=== PATIENT | male | born 1990 | race Caucasian/White ===

== ENCOUNTER 2022-09-01 18:39 | Emergency (ER) | payer MEDICAID, SELFPAY ==
[2022-09-01 18:57] VITALS: BP 134/90; PULSE 73; RESP 18; TEMP 36.8; O2SAT 97; BMI 32.4
--- NOTE | 2022-09-01 18:57 | ED.RECABL ---
HPI - Recheck/Abnormal Lab/Rx General Chief Complaint: Recheck/Abnormal Lab/Rx Stated Complaint: Abnormal labs Time Seen by Provider: 09/01/22 20:24 Source: patient Mode of arrival: ambulatory Limitations: no limitations History of Present Illness HPI narrative: 32-year-old male presents to the ER for evaluation of possible abnormal blood work. He states his PCP told him to come in to the ER for evaluation because they thought he might have fatty liver disease. He was sent in for repeat labs. He is not sure with the lab values were. He denies any right upper quadrant pain, nausea, vomiting or diarrhea. He states he has intermittently been ?getting ?abdominal tightness? that lasts anywhere from 30 minutes to an hour for the last several months. It is chronic and nothing new. He denies alcohol intake. complaint: abnormal lab Returns today for: called because of abnormal lab/test Symptoms since prior visit: no new symptoms Associated symptoms: none Related Data Allergies Allergy/AdvReac Type Severity Reaction Status Date / Time No Known Allergies Allergy Unverified 05/09/20 16:01 [No Known Allergies*] Review of Systems Review of Systems: Yes all other systems are reviewed and are negative [facility] Social History Social History Advance Directives: No Advance Directives Information Provided: No Physical Exam Vital Signs: Vital Signs: Last Vital Signs Temp 98.2 F 09/01/22 18:57 Pulse 73 09/01/22 18:57 Resp 18 09/01/22 18:57 BP 134/90 H 09/01/22 18:57 Pulse Ox 97 09/01/22 18:57 O2 Del Method 09/01/22 18:57 BMI result Body Mass Index 32.4 Appearance: Alert. Oriented X3. Eating potato chips HEENT: normal inspection CVS: Normal heart rate and rhythm. Pulses normal. Respiratory: No respiratory distress. Abd: soft, nontender, nondistended. normal BS. No HSM palpable Skin: Skin warm and dry. Normal skin color. Normal skin turgor. No rashes. Extremities: normal inspection, no LE edema Neuro: Oriented X 3. Grossly normal, nonfocal. Course Course Course Narrative: 32 yo male with history of opioid use disorder on Suboxone presents to the ER for evaluation of abnormal lab work. He says his care provider told him to come to the ER for evaluation of his liver, that he may have fatty liver. He does not know what labs were done or what was abnormal. He reports random tight diffuse abdominal pains that started a couple months ago. Will get labs and coags. PCP is Kitty Garcia from [facility]. Reevaluation(s) Reevaluation #1: Labs show AST 55, ALT 1 weight. Normal alk-phos. Normal coags. Overall lab work is unremarkable, no indication for emergent imaging of the liver today. Results were discussed with patient. Encouraged follow up with his PCP. Stable for discharge home Medical Decision Making Medical Decision Making [facility] Narrative: 32-year-old male presenting for evaluation of abnormal blood work as an outpatient. He does not know what the lab work was. He has no right upper quadrant pain or tenderness on examination. He is not jaundiced. Will get basic lab workup including coags worse with the function of the liver. Differential Diagnosis Differential Diagnoses: The differential diagnosis associated with the presentation includes Acute cholecystitis, acute decompensated liver cirrhosis, transaminitis, fatty liver disease, pancreatitis, other metabolic derangement Lab Data [facility] Lab Attestation statement: I reviewed the patient's lab results. Labs reviewed, normal CBC, normal chemistry, very mild transaminitis, not elevated to 3 times the upper limit of normal. No elevation of alkaline phosphatase to suggest biliary obstruction. 09/01/22 19:07 09/01/22 19:07 Labs: Lab Results 09/01/22 09/01/22 09/01/22 Range/Units 19:07 19:07 19:07 WBC 8.0 (4.8-10.8) X10*3/uL RBC 5.16 (4.60-5.80) X10*6/uL Hgb 15.3 (14.0-18.0) g/dl Hct 43.7 (42.0-52.0) % MCV 84.7 (80.0-98.0) fL MCH 29.7 (27.0-33.0) pg MCHC 35.0 (31.0-36.0) g/dl RDW 11.8 (11.0-16.0) % Plt Count 240 (160-400) X10*3/uL MPV 10.8 (9.4-12.4) fL Immature Gran % (Auto) 0.3 (0.0-0.4) % Neut % (Auto) 65.8 (45-73) % Lymph % (Auto) 17.5 L (20-40) % [place] % (Auto) 8.8 (2-11) % Eos % (Auto) 6.5 H (0-4) % Baso % (Auto) 1.1 (0-2) % Lymph # (Auto) 1.4 (1.2-4.9) X10*3/uL [place] # (Auto) 0.7 (0.1-1.2) X10*3/uL Eos # (Auto) 0.5 H (0.0-0.4) X10*3/uL Baso # (Auto) 0.1 (0.0-0.2) X10*3/uL Abs Immat Gran (auto) 0.02 (0.00-0.03) X10*3/uL Absolute Neuts (auto) 5.3 (2.0-8.3) x10*3/uL Absolute Nucleated RBC 0.000 (0.0-0.012) X10*3/uL Nucleated RBC % (auto) 0.0 (0.0-0.2) /100WBC PT 11.5 (10.0-13.1) SEC INR 1.0 (0.9-1.1) APTT 28.6 (26.0-36.4) SEC Sodium 142 (135-145) mmol/L Potassium 4.4 (3.3-5.1) mmol/L Chloride 105 (96-108) mmol/L Carbon Dioxide 26 (22-29) mmol/L Anion Gap 15 (12-20) BUN 15 (9-16) mg/dL Creatinine 1.12 (0.5-1.4) mg/dL Estim Creat Clear Calc 93.4 Estimated GFR > 60 Random Glucose 85 (60-115) mg/dL Calcium 9.9 (8.4-10.2) mg/dL Magnesium 2.1 (1.6-2.6) mg/dL Total Bilirubin 0.6 (0.0-1.0) mg/dL Direct Bilirubin 0.2 (0.0-0.5) mg/dL AST 55 H (5-37) U/L ALT 108 H (0-40) U/L Alkaline Phosphatase 65 (39-117) U/L Total Protein 7.4 (6.5-8.0) g/dL Albumin 4.7 (3.5-5.0) g/dL Critical Care Time Critical Care Time Critical Care Time: No Discharge Plan Discharge Clinical Impression: Transaminitis Patient Disposition: Home, Self-Care Instructions: Non-Alcoholic Fatty Liver Disease (ED) Additional Instructions: Your lab workup today was reassuring. You had very mild elevation in your liver enzymes - this could be due to various causes. Your AST was 55 and your ALT was 108. Recommend following back up with your primary care doctor for trending of these enzymes and possible imaging of your liver. There is no emergent need for this today. If you develop new or worsening symptoms call 911 or come back to the ER for further evaluation. Stand Alone Forms: Work/School Release
[2022-09-01 19:11] LABS: MANUAL DIFF FLAG NO
[2022-09-01 19:12] LABS: Basophils Absolute Auto 0.1 X10*3/uL (0.0-0.2); Basophils Percent Auto 1.1 % (0-2); Eosinophils Absolute Auto 0.5 X10*3/uL (0.0-0.4); Eosinophils Percent Auto 6.5 % (0-4); Hematocrit 43.7 % (42.0-52.0); Hemoglobin 15.3 g/dl (14.0-18.0); Imm Gran Abs Auto 0.02 X10*3/uL (0.00-0.03); Imm Gran Pct Auto 0.3 % (0.0-0.4); Lymphocytes Absolute Auto 1.4 X10*3/uL (1.2-4.9); Lymphocytes Percent Auto 17.5 % (20-40); Mean Corpuscular Hemoglobin 29.7 pg (27.0-33.0); Mean Corpuscular Volume 84.7 fL (80.0-98.0); Mean Platelet Volume 10.8 fL (9.4-12.4); Monocytes Absolute Auto 0.7 X10*3/uL (0.1-1.2); Monocytes Percent Auto 8.8 % (2-11); Neutrophils Absolute Auto 5.3 x10*3/uL (2.0-8.3); Neutrophils Percent Auto 65.8 % (45-73); Platelet Count 240 X10*3/uL (160-400); Red Blood Count 5.16 X10*6/uL (4.60-5.80); Red Cell Distribution Width 11.8 % (11.0-16.0)
[2022-09-01 19:24] LABS: Prothrombin Time 11.5 SEC (10.0-13.1)
[2022-09-01 19:27] LABS: Partial Thromboplastin Time 28.6 SEC (26.0-36.4)
[2022-09-01 19:31] LABS: Alanine Aminotransferase 108 U/L (0-40); Albumin Level 4.7 g/dL (3.5-5.0); Alkaline Phosphatase 65 U/L (39-117); Anion Gap 15 (12-20); Aspartate Amino Transferase 55 U/L (5-37); Bilirubin Direct 0.2 mg/dL (0.0-0.5); Bilirubin Total 0.6 mg/dL (0.0-1.0); Blood Urea Nitrogen 15 mg/dL (9-16); Calcium 9.9 mg/dL (8.4-10.2); Carbon Dioxide 26 mmol/L (22-29); Chloride 105 mmol/L (96-108); Creatinine Clr Calc Pharmacy 93.4; Estimated Glomerular Filt Rate > 60; Glucose Random 85 mg/dL (60-115); Magnesium 2.1 mg/dL (1.6-2.6); Potassium 4.4 mmol/L (3.3-5.1); Sodium 142 mmol/L (135-145); Total Protein 7.4 g/dL (6.5-8.0)
== END 2022-09-01 20:55 | disposition home or self-care (01) ==
PROVIDERS: Physician Assistant; Emergency Provider Internal Medicine; PCP Registered Nurse
DX: R74.01 Elevation of levels of liver transaminase levels (principal)
CPT/HCPCS: 36415; 80048; 80076; 83735; 85025; 85610; 85730; 99282; 99283

== ENCOUNTER 2022-12-14 20:25 | Observation (INO) | payer MEDICAID, SELFPAY ==
--- NOTE | 2022-12-14 | ECG_ITS ---
Test Reason : ASTHMA Blood Pressure : / mmHG Vent. Rate : 100 BPM Atrial Rate : 100 BPM P-R Int : 128 ms QRS Dur : 078 ms QT Int : 334 ms P-R-T Axes : 063 093 038 degrees QTc Int : 430 ms Normal sinus rhythm Rightward axis Borderline ECG No previous ECGs available Referred By: Generic ED Physician Electronically Signed By:Eusebio Delgado
--- NOTE | ~2022-12-14 | XR_ITS ---
EXAMINATION: XR CHEST CLINICAL INFORMATION: Shortness of breath COMPARISON: None available. TECHNIQUE: 2 views of the chest were obtained. FINDINGS: No significant abnormality is noted involving the heart, lungs, mediastinum, bony thorax or soft tissues. XR/XR chest 2V IMPRESSION: Unremarkable examination.
--- NOTE | ~2022-12-14 | CT_ITS ---
EXAMINATION: CT ABDOMEN AND PELVIS WITH CONTRAST CLINICAL INFORMATION: Abdominal pain COMPARISON: None available. TECHNIQUE: Multidetector volumetric images were obtained from the superior aspect of the liver through the pubic symphysis following administration 85 mL of Omnipaque 350 intravenous contrast. Sagittal and coronal reformatted images were obtained on the technologist's workstation. Oral contrast: No This CT examination was performed using dose optimization techniques as appropriate, variously including the following: *Automated exposure control *Adjustment of mA and/or kV according to patient size (this includes techniques or standardized protocols for targeted exams where dose is matched to indication/reason for exam; i.e. extremities or head) *Use of iterative reconstruction technique DLP: 622 mGy-cm FINDINGS: LUNG BASES: The visualized lung bases are unremarkable. LIVER, GALLBLADDER, AND BILIARY TREE: The liver is normal in size and shape with decreased attenuation. No focal hepatic lesion or biliary ductal dilatation is present. The gallbladder is unremarkable with no evidence of radiopaque gallstones, gallbladder wall thickening, or obvious pericholecystic inflammatory changes. PANCREAS: Unremarkable. SPLEEN: Unremarkable. ADRENAL GLANDS: Unremarkable. KIDNEYS AND URETERS: The kidneys are normal in size, shape, and attenuation. No hydronephrosis, hydroureter, or calculi seen. No perinephric stranding. BLADDER: Unremarkable. GASTROINTESTINAL TRACT: The small and large bowel are unremarkable. The appendix is unremarkable. ABDOMINAL WALL: No significant hernia is appreciated. LYMPH NODES: Normal. VASCULAR: Unremarkable. PELVIC VISCERA: The prostate and seminal vesicles are unremarkable. OSSEOUS STRUCTURES: No acute or suspicious osseous abnormality. CT/CT abdomen pelvis w IV con IMPRESSION: 1. No acute findings in the abdomen or pelvis. No inflammatory changes. 2. Hepatic steatosis. Fleischner guidelines were followed.
[2022-12-14 20:58] VITALS: BP 138/77; PULSE 95; RESP 20; TEMP 37; O2SAT 94; BMI 30.7
[2022-12-14 21:35] LABS: MANUAL DIFF FLAG NO
[2022-12-14 21:36] LABS: Basophils Absolute Auto 0.1 X10*3/uL (0.0-0.2); Basophils Percent Auto 0.8 % (0-2); Eosinophils Absolute Auto 0.6 X10*3/uL (0.0-0.4); Eosinophils Percent Auto 5.2 % (0-4); Hematocrit 43.2 % (42.0-52.0); Imm Gran Abs Auto 0.03 X10*3/uL (0.00-0.03); Imm Gran Pct Auto 0.2 % (0.0-0.4); Lymphocytes Absolute Auto 1.8 X10*3/uL (1.2-4.9); Lymphocytes Percent Auto 14.8 % (20-40); Mean Corpuscular HGB Conc 34.7 g/dl (31.0-36.0); Mean Corpuscular Hemoglobin 29.2 pg (27.0-33.0); Mean Corpuscular Volume 84.2 fL (80.0-98.0); Mean Platelet Volume 11.2 fL (9.4-12.4); Monocytes Percent Auto 8.5 % (2-11); Neutrophils Absolute Auto 8.6 x10*3/uL (2.0-8.3); Neutrophils Percent Auto 70.5 % (45-73); Platelet Count 208 X10*3/uL (160-400); Red Blood Count 5.13 X10*6/uL (4.60-5.80); Red Cell Distribution Width 12.1 % (11.0-16.0); White Blood Count 12.2 X10*3/uL (4.8-10.8)
[2022-12-14 21:50] LABS: Anion Gap 15 (12-20); Blood Urea Nitrogen 11 mg/dL (9-16); Calcium 9.6 mg/dL (8.4-10.2); Carbon Dioxide 27 mmol/L (22-29); Chloride 106 mmol/L (96-108); Creatinine Clr Calc Pharmacy 85.7; Estimated Glomerular Filt Rate > 60; Glucose Random 91 mg/dL (60-115); Potassium 3.9 mmol/L (3.3-5.1); Sodium 144 mmol/L (135-145)
[2022-12-14 21:59] VITALS: O2SAT 89
[2022-12-14 22:15] VITALS: BP 143/75; PULSE 98; RESP 25; TEMP 36.7; O2SAT 91
[2022-12-14] MEDS: Albuterol/Iprat 2.5/0.5MG 3 ML AMPUL.NEB INHALE (22:23)
[2022-12-14 22:24] VITALS: PULSE 98; RESP 20; O2SAT 92
--- NOTE | 2022-12-14 22:31 | ED.ASTHMA ---
HPI - Asthma General Chief Complaint: Asthma Stated Complaint: asthma,sob Time Seen by Provider: 12/14/22 22:13 History of Present Illness HPI Narrative: Patient is a 32-year-old male presents today with having wheezing shortness of breath. Patient has a history of asthma. Admitted to the hospital approximately 5 years ago. Never been intubated. Patient vapes. No other recreational drugs. Positive coughing congestion upper respiratory symptoms since yesterday. Use his inhaler and Mucinex to no relief came to the ED for further evaluation. Coughing with material. Related Data Allergies Allergy/AdvReac Type Severity Reaction Status Date / Time No Known Allergies Allergy Unverified 05/09/20 16:01 [No Known Allergies*] Review of Systems Review of Systems: Positive cough and congestion Positive generalized malaise Yes all other systems are reviewed and are negative [facility] Past Medical History Attestation statement: The following information was validated with the patient. Social History Social History Alcohol intake: never Smoked in Last 30 Days: No Use of substances other than those prescribed or required for medical reasons: No Advance Directives: No Advance Directives Information Provided: No Physical Exam Vital Signs: Vital Signs: Last Vital Signs Temp 98.0 F 12/14/22 22:15 Pulse 103 H 12/14/22 22:37 Resp 20 12/14/22 22:37 BP 143/75 H 12/14/22 22:15 Pulse Ox 91 L 12/14/22 22:15 O2 Del Method Nasal Cannula 12/14/22 22:15 BMI result Body Mass Index 30.7 Appearance: Alert. Oriented X3. No acute distress. Eyes: Pupils equal, round and reactive to light. ENT: Pharynx normal. Neck: Normal inspection. Neck supple. No lymph nodes noted. No crepitus CVS: Normal heart rate and rhythm. Pulses normal. Normal S1 and S2 Respiratory: Positive wheezing bilaterally. No retraction of Abdomen: Soft and nontender. No rigidity. No distention. good BS x4 Skin: Skin warm and dry. Normal skin color. Normal skin turgor. Extremities: No lower extremity edema. Neurovascular intact to all extremities. No Lacerations. No Rash Neuro: Oriented X 3. No motor deficit. No sensory deficit. Moving all extermities. No slurred speech Medications Administered Discontinued Medications Generic Name Dose Route Start Last Admin Trade Name Noah PRN Reason Stop Dose Admin Albuterol Sulfate 10 mg 12/14/22 22:29 12/14/22 22:34 Albuterol Sulfate (0.083%) 2.5 Mg/3 Ml Vial.Neb INHALE 12/14/22 22:30 10 mg ONCE ONE Administration Albuterol/Ipratropium 3 ml 12/14/22 22:16 12/14/22 22:23 Albuterol/Iprat 2.5/0.5mg 3 Ml Ampul.Neb INHALE 12/14/22 22:17 3 ml ONCE ONE Administration Hydromorphone HCl 0.5 mg 12/15/22 00:11 12/15/22 00:32 Hydromorphone Hcl 0.5 Mg/0.5 Ml Syringe IVPUSH 12/15/22 00:12 0.5 mg ONCE ONE Administration Protocol Magnesium Sulfate 2 gm in 50 mls @ 50 mls/hr 12/14/22 22:29 12/15/22 00:47 Magnesium Sulfate/H2o IV 12/14/22 23:28 Infused ONCE ONE Infusion Sodium Chloride 1,000 mls @ 999 mls/hr 12/15/22 00:15 12/15/22 00:32 Ns IV 12/15/22 01:15 999 mls/hr .Q1H1M SHIVAM Administration Methylprednisolone Sodium Succinate 125 mg 12/14/22 22:29 12/14/22 22:55 Methylprednisolone Sod Succ 125 Mg/2 Ml Vial IVPUSH 12/14/22 22:30 125 mg ONCE ONE Administration Ondansetron HCl 4 mg 12/15/22 00:02 12/15/22 00:33 Ondansetron Hcl 4 Mg/2 Ml Vial IVPUSH 12/15/22 00:03 4 mg ONCE ONE Administration Medical Decision Making Medical Decision Making MDM Narrative: Patient is 32 years old presents today with having wheezing shortness of breath upper respiratory symptoms. Coughing congestion. Patient try using inhalers and Mucinex in no relief. Given a continuous treatment here in the emergency department. In addition patient was given steroid symptom improved with treatment initially. Patient then complaining of abdominal pain. My review patient's CT showed no acute findings. Patient's abdominal pain subsided. Patient then complaining of increasing shortness of breath again. Will give additional neb treatment. Patient's flu RSV COVID were all negative. Chest x-ray showed no focal infiltrate no pneumonia no pneumothorax. In stable condition. Given patient failed multiple treatments. Will admit patient for further evaluation. Differential Diagnosis Differential Diagnoses: The differential diagnosis associated with the presentation includes Asthma, bronchitis, pneumonia, pneumothorax, viral illness Consult Healthcare Provider Management of the patient was discussed with: Hospitalist Case consulted by hospitalist team Lab Data 12/14/22 21:30 12/14/22 21:30 Labs: Lab Results 12/14/22 12/14/22 12/14/22 Range/Units 21:30 21:30 21:30 WBC 12.2 H (4.8-10.8) X10*3/uL RBC 5.13 (4.60-5.80) X10*6/uL Hgb 15.0 (14.0-18.0) g/dl Hct 43.2 (42.0-52.0) % MCV 84.2 (80.0-98.0) fL MCH 29.2 (27.0-33.0) pg MCHC 34.7 (31.0-36.0) g/dl RDW 12.1 (11.0-16.0) % Plt Count 208 (160-400) X10*3/uL MPV 11.2 (9.4-12.4) fL Immature Gran % (Auto) 0.2 (0.0-0.4) % Neut % (Auto) 70.5 (45-73) % Lymph % (Auto) 14.8 L (20-40) % [place] % (Auto) 8.5 (2-11) % Eos % (Auto) 5.2 H (0-4) % Baso % (Auto) 0.8 (0-2) % Lymph # (Auto) 1.8 (1.2-4.9) X10*3/uL [place] # (Auto) 1.0 (0.1-1.2) X10*3/uL Eos # (Auto) 0.6 H (0.0-0.4) X10*3/uL Baso # (Auto) 0.1 (0.0-0.2) X10*3/uL Abs Immat Gran (auto) 0.03 (0.00-0.03) X10*3/uL Absolute Neuts (auto) 8.6 H (2.0-8.3) x10*3/uL Absolute Nucleated RBC 0.000 (0.0-0.012) X10*3/uL Nucleated RBC % (auto) 0.0 (0.0-0.2) /100WBC Sodium 144 (135-145) mmol/L Potassium 3.9 (3.3-5.1) mmol/L Chloride 106 (96-108) mmol/L Carbon Dioxide 27 (22-29) mmol/L Anion Gap 15 (12-20) BUN 11 (9-16) mg/dL Creatinine 1.19 (0.5-1.4) mg/dL Estim Creat Clear Calc 85.7 Estimated GFR > 60 Random Glucose 91 (60-115) mg/dL Calcium 9.6 (8.4-10.2) mg/dL Troponin I High Sens 6.0 (<3.5-35.0) ng/L Influenza Type A (PCR) (Negative) Influenza Type B (PCR) (Negative) RSV RNA Qual (PCR) (Negative) SARS-CoV-2 RNA (RT-PCR) (Negative) 12/14/22 Range/Units 22:34 WBC (4.8-10.8) X10*3/uL RBC (4.60-5.80) X10*6/uL Hgb (14.0-18.0) g/dl Hct (42.0-52.0) % MCV (80.0-98.0) fL MCH (27.0-33.0) pg MCHC (31.0-36.0) g/dl RDW (11.0-16.0) % Plt Count (160-400) X10*3/uL MPV (9.4-12.4) fL Immature Gran % (Auto) (0.0-0.4) % Neut % (Auto) (45-73) % Lymph % (Auto) (20-40) % [place] % (Auto) (2-11) % Eos % (Auto) (0-4) % Baso % (Auto) (0-2) % Lymph # (Auto) (1.2-4.9) X10*3/uL [place] # (Auto) (0.1-1.2) X10*3/uL Eos # (Auto) (0.0-0.4) X10*3/uL Baso # (Auto) (0.0-0.2) X10*3/uL Abs Immat Gran (auto) (0.00-0.03) X10*3/uL Absolute Neuts (auto) (2.0-8.3) x10*3/uL Absolute Nucleated RBC (0.0-0.012) X10*3/uL Nucleated RBC % (auto) (0.0-0.2) /100WBC Sodium (135-145) mmol/L Potassium (3.3-5.1) mmol/L Chloride (96-108) mmol/L Carbon Dioxide (22-29) mmol/L Anion Gap (12-20) BUN (9-16) mg/dL Creatinine (0.5-1.4) mg/dL Estim Creat Clear Calc Estimated GFR Random Glucose (60-115) mg/dL Calcium (8.4-10.2) mg/dL Troponin I High Sens (<3.5-35.0) ng/L Influenza Type A (PCR) NEGATIVE (Negative) Influenza Type B (PCR) NEGATIVE (Negative) RSV RNA Qual (PCR) NEGATIVE (Negative) SARS-CoV-2 RNA (RT-PCR) NEGATIVE (Negative) Independent Interpretation I performed an independent interpretation of an: Plain X-Ray Interpretation: Chest x-ray negative for pneumonia pneumothorax Radiology Impression Discussion of test interpretation with radiology: I have reviewed the radiologist's reading. Independent Historian Clinical information obtained from an independent historian. History obtained from or confirmed by: Spouse Chronic Conditions Asthma Discharge Plan Discharge Clinical Impression: Asthma with acute exacerbation, Viral illness Patient Disposition: Admitted As Inpatient
[2022-12-14] MEDS: Albuterol Sulfate (0.083%) 2.5 MG/3 ML VIAL.NEB 10 MG INHALE (22:34)
[2022-12-14 22:37] VITALS: PULSE 103; RESP 20; O2SAT 95
[2022-12-14] MEDS: Magnesium Sulfate/H2O 2 GM/50 ML PIGGYBACK IV (22:55)
[2022-12-14] MEDS: methylPREDNISolone Sod Succ 125 MG/2 ML VIAL IVPUSH (22:55)
[2022-12-14 23:17] LABS: Influenza A PCR NEGATIVE (Negative); Influenza B PCR NEGATIVE (Negative); Resp Syncy Virus RNA Qual PCR NEGATIVE (Negative); SARS COV2 PCR INHOUSE NEGATIVE (Negative)
--- NOTE | 2022-12-15 00:26 | PC.NURSE ---
pt assessed, reported nausea and vomiting and lower abd pain, medicated 4mg of zofran ivp ans ns infusing. pt was unable to get up to ambulate due to the pain
[2022-12-15] MEDS: 0.9 % Sodium Chloride 1,000 ML 999 ML IV (00:32)
[2022-12-15] MEDS: HYDROmorphone HCl 0.5 MG/0.5 ML SYRINGE IVPUSH (00:32)
[2022-12-15] MEDS: ondansetron HCL 4 MG/2 ML VIAL IVPUSH (00:33)
[2022-12-15] MEDS: iohexoL 350 MG/ML 100 ML INFUS..BTL 85 ML IV (01:39)
--- NOTE | 2022-12-15 01:40 | PM.IMHP ---
History of Present Illness Date of Service: 12/15/22 Chief Complaint: Dyspnea This is a 32-year-old male with pertinent history of asthma who presents to the emergency department for evaluation of dyspnea and wheezing. Patient states the symptoms started 1 day prior to presentation. He has been having chills, upper respiratory symptoms and cough with clear sputum production. Patient states he was admitted approximately 5 years ago for asthma exacerbation. Has never been intubated. Patient used his inhaler but he continued to have wheezing and hence presented to the ER. Patient denies fever, chest discomfort, palpitations, abdominal pain, changes in urinary or bowel habits. In the emergency department, patient continued to have wheezing with multiple DuoNeb treatments Review of Systems Constitutional: Constitutional: Reports chills Cardiovascular: Cardiovascular: Reports dyspnea on exertion Respiratory: Respiratory: Reports cough, Reports dyspnea on exertion and Reports wheezing Gastrointestinal: Gastrointestinal: Reports no additional gastrointestinal complaints Genitourinary: Genitourinary: Reports no additional male genitourinary complaints Allergic/Immunologic: Allergic/Immunologic: Reports wheezing [facility] Medical History Asthma Pertinent family history: No family history of early CAD Social History Alcohol intake: never Smoked in Last 30 Days: No Use of substances other than those prescribed or required for medical reasons: No Advance Directives: No Advance Directives Information Provided: No Meds Allergies Allergy/AdvReac Type Severity Reaction Status Date / Time No Known Allergies Allergy Unverified 05/09/20 16:01 [No Known Allergies*] Active Medications: Current Medications Albuterol Sulfate (Albuterol Sulfate (0.083%) 2.5 Mg/3 Ml Vial.Neb) 2.5 mg INHALE Q3H PRN PRN Reason: Wheezing Albuterol Sulfate (Albuterol Sulfate (0.083%) 2.5 Mg/3 Ml Vial.Neb) 2.5 mg INHALE RQ4H WHILE AWAKE SHIVAM Methylprednisolone Sodium Succinate (Methylprednisolone Sod Succ 40 Mg/Ml Vial) 40 mg IVPUSH Q12H SHIVAM Last Admin: 12/15/22 01:38 Dose: Not Given Physical Exam Vital Signs and Narrative: Vital Signs: Last Vital Signs Temp 98.0 F 12/14/22 22:15 Pulse 103 H 12/14/22 22:37 Resp 20 12/14/22 22:37 BP 143/75 H 12/14/22 22:15 Pulse Ox 91 L 12/14/22 22:15 O2 Del Method Nasal Cannula 12/14/22 22:15 BMI result Body Mass Index 30.7 Middle-aged male lying in bed in mild distress Neck supple, no JVD Tachycardic with regular rhythm, S1-S2 heard Bilateral wheezing without crackles Abdomen soft nontender, no guarding, no rigidity Patient is awake, alert and oriented to self, place, time and person ; no focal motor deficit Psych: Normal mood No pedal edema Results Labs 12/14/22 21:30 12/14/22 21:30 Labs: Laboratory Results - last 24 hr 12/14/22 12/14/22 12/14/22 21:30 21:30 21:30 MCV 84.2 MCH 29.2 MCHC 34.7 RDW 12.1 Plt Count 208 MPV 11.2 Immature Gran % (Auto) 0.2 Neut % (Auto) 70.5 Lymph % (Auto) 14.8 L [place] % (Auto) 8.5 Eos % (Auto) 5.2 H Baso % (Auto) 0.8 Lymph # (Auto) 1.8 [place] # (Auto) 1.0 Eos # (Auto) 0.6 H Baso # (Auto) 0.1 Abs Immat Gran (auto) 0.03 Absolute Neuts (auto) 8.6 H Absolute Nucleated RBC 0.000 Nucleated RBC % (auto) 0.0 Anion Gap 15 Estim Creat Clear Calc 85.7 Estimated GFR > 60 Random Glucose 91 Calcium 9.6 Troponin I High Sens 6.0 Influenza Type A (PCR) Influenza Type B (PCR) RSV RNA Qual (PCR) SARS-CoV-2 RNA (RT-PCR) 12/14/22 22:34 MCV MCH MCHC RDW Plt Count MPV Immature Gran % (Auto) Neut % (Auto) Lymph % (Auto) [place] % (Auto) Eos % (Auto) Baso % (Auto) Lymph # (Auto) [place] # (Auto) Eos # (Auto) Baso # (Auto) Abs Immat Gran (auto) Absolute Neuts (auto) Absolute Nucleated RBC Nucleated RBC % (auto) Anion Gap Estim Creat Clear Calc Estimated GFR Random Glucose Calcium Troponin I High Sens Influenza Type A (PCR) NEGATIVE Influenza Type B (PCR) NEGATIVE RSV RNA Qual (PCR) NEGATIVE SARS-CoV-2 RNA (RT-PCR) NEGATIVE Imaging Radiologist's Impressions: Impressions Chest X-Ray 12/14/22 21:24 IMPRESSION: Unremarkable examination. Assessment and Plan (1) Asthma with acute exacerbation: Status: Acute Plan This is a 32-year-old male with pertinent history of asthma who presents to the emergency department for evaluation of dyspnea and wheezing. #. Acute respiratory distress due to acute exacerbation of asthma: Will admit patient and initiate systemic steroids. Scheduled and p.r.n. beta agonist. Continue home inhaler. Benzonotate p.r.n. Claritin 10 mg daily #. Reactive leukocytosis. Defer antibiotics Med rec pending DVT prophylaxis: None. Patient is ambulatory Regular diet Full code Time Spent With Patient Time: Total time managing care of this patient today ____ minutes. Quality Stroke Does the patient have a stroke diagnosis?: No VTE Prior VTE?: No VTE Risk Level:: Medical - low VTE Device Contraindication: Treatment Not Indicated VTE Drug Contraindication: Treatment Not Indicated
[2022-12-15 01:43] VITALS: PULSE 100; RESP 20; O2SAT 90
[2022-12-15] MEDS: Albuterol Sulfate (0.083%) 2.5 MG/3 ML VIAL.NEB INHALE (01:43)
--- NOTE | 2022-12-15 03:37 | PC.NURSE ---
pt requested to leave AMA, pt given AMA form to sign, pt given instructions on what can happen and when to return to the ed Dr. Syed eugene
--- NOTE | 2022-12-15 04:10 | PM.EVENT ---
Event Note Date of Service: 12/15/22 Event Note: Was informed by the nurse that patient wants to leave AMA. As per the nurse, patient understood the risks of leaving against medical advice which included worsening of breathing and/or . Patient eloped before I could talk to him. Time Spent With Patient Time: Total time managing care of this patient today ____ minutes.
--- NOTE | 2022-12-15 09:06 | MHC.CM.PN ---
Patient left AMA before being seen by case management.
--- NOTE | 2022-12-15 19:00 | P.DS_ITS ---
DS: Providers Provider Date of Service: 12/15/22 Date of admission: 12/15/22 01:39 Date of discharge: 12/15/22 Primary care physician: [facility] DS: Diagnosis Discharge Diagnosis (1) Asthma with acute exacerbation: Status: Acute DS: Summary Hospital Course Hospital Course: HPI: This is a 32-year-old male with pertinent history of asthma who presents to the emergency department for evaluation of dyspnea and wheezing.? Patient states the symptoms started 1 day prior to presentation.? He has been having chills, upper respiratory symptoms and cough with clear sputum production.? Patient states he was admitted approximately 5 years ago for asthma exacerbation.? Has never been intubated.? Patient used his inhaler but he continued to have wheezing and hence presented to the ER.? Patient denies fever, chest discomfort, palpitations, abdominal pain, changes in urinary or bowel habits. Hospital course: Patient was admitted and initiated on systemic steroids along with scheduled and p.r.n. beta agonist. Also initiated on benzonatate and Claritin for symptomatic relief. Was informed by the nurse that patient wanted to leave AMA.? As per the nurse, patient understood the risks of leaving against medical advice which included worsening of breathing and/or .? Patient eloped before I could talk to him. Status at Discharge Functional status at discharge: independent ambulation Overall status at discharge: patient is progressing back to baseline Time Spent with Patient Time attestation: Total time managing care of this patient today ____ minutes. Discharge coordination time: Less than 30 minutes Quality: Safe Use of Opioids Does Pt have an Active Cancer Diagnosis on the Problem List?: No Quality: Stroke Does the patient have a stroke diagnosis?: No Physical Exam Vital Signs: Vital Signs: Last Vital Signs Temp 98.0 F 12/14/22 22:15 Pulse 100 12/15/22 01:43 Resp 20 12/15/22 01:43 BP 143/75 H 12/14/22 22:15 Pulse Ox 91 L 12/14/22 22:15 O2 Del Method Nasal Cannula 12/14/22 22:15 BMI result Body Mass Index 30.7 Middle-aged male lying in bed in mild distress Neck supple, no JVD Tachycardic with regular rhythm, S1-S2 heard Bilateral wheezing without crackles Abdomen soft nontender, no guarding, no rigidity Patient is awake, alert and oriented to self, place, time and person ; no focal motor deficit Psych: Normal mood No pedal edema DS: Data Data Completed and Pending Labs on day of discharge: Laboratory Results - last 24 hr 12/14/22 12/14/22 12/14/22 21:30 21:30 21:30 WBC 12.2 H RBC 5.13 Hgb 15.0 Hct 43.2 MCV 84.2 MCH 29.2 MCHC 34.7 RDW 12.1 Plt Count 208 MPV 11.2 Immature Gran % (Auto) 0.2 Neut % (Auto) 70.5 Lymph % (Auto) 14.8 L [place] % (Auto) 8.5 Eos % (Auto) 5.2 H Baso % (Auto) 0.8 Lymph # (Auto) 1.8 [place] # (Auto) 1.0 Eos # (Auto) 0.6 H Baso # (Auto) 0.1 Abs Immat Gran (auto) 0.03 Absolute Neuts (auto) 8.6 H Absolute Nucleated RBC 0.000 Nucleated RBC % (auto) 0.0 Sodium 144 Potassium 3.9 Chloride 106 Carbon Dioxide 27 Anion Gap 15 BUN 11 Creatinine 1.19 Estim Creat Clear Calc 85.7 Estimated GFR > 60 Random Glucose 91 Calcium 9.6 Troponin I High Sens 6.0 Influenza Type A (PCR) Influenza Type B (PCR) RSV RNA Qual (PCR) SARS-CoV-2 RNA (RT-PCR) 12/14/22 22:34 WBC RBC Hgb Hct MCV MCH MCHC RDW Plt Count MPV Immature Gran % (Auto) Neut % (Auto) Lymph % (Auto) [place] % (Auto) Eos % (Auto) Baso % (Auto) Lymph # (Auto) [place] # (Auto) Eos # (Auto) Baso # (Auto) Abs Immat Gran (auto) Absolute Neuts (auto) Absolute Nucleated RBC Nucleated RBC % (auto) Sodium Potassium Chloride Carbon Dioxide Anion Gap BUN Creatinine Estim Creat Clear Calc Estimated GFR Random Glucose Calcium Troponin I High Sens Influenza Type A (PCR) NEGATIVE Influenza Type B (PCR) NEGATIVE RSV RNA Qual (PCR) NEGATIVE SARS-CoV-2 RNA (RT-PCR) NEGATIVE Imaging Chest x-ray: Radiologist's impression: ITS Impressions Chest X-Ray 12/14/22 21:24 IMPRESSION: Unremarkable examination. Abdomen/Pelvis CT 12/15/22 01:30 IMPRESSION: 1. No acute findings in the abdomen or pelvis. No inflammatory changes. 2. Hepatic steatosis. Fleischner guidelines were followed. Discharge Plan Discharge Anticipated Discharge Date/Time: 12/15/22 07:59 Patient Disposition: Left Against Medical Advice Referrals: [facility] [Primary Care Provider] - 1 Week Discharge Orders: Discharge Order (Routine); Ordered 12/15/22 Ordered By: Pamela Gallagher Diet: Regular diet Activity on Discharge: As tolerated Care Plan Goals: Avoid allergens and be compliant with home inhaler Health Concerns: Asthma Plan of Treatment: Continue home inhaler and follow with PCP Assessment: As above Patient Instructions: Asthma (DC), Viral Syndrome (ED) Discharge Date/Time: 12/15/22 07:40
== END 2022-12-15 07:40 | disposition left against medical advice (07) ==
LOC: HO.ED 12-15 01:32 → HO.EDOVER 12-15 01:47
PROVIDERS: Admitting Provider Student in an Organized Health Care Education/Training Program; Emergency Provider Emergency Medicine Emergency Medical Services; PCP Registered Nurse; Visit Provider Student in an Organized Health Care Education/Training Program
DX: B34.9 Viral infection, unspecified (principal); J45.901 Unspecified asthma with (acute) exacerbation; D72.829 Elevated white blood cell count, unspecified; Z20.822 Contact with and (suspected) exposure to COVID-19; Z20.828 Contact with and (suspected) exposure to other viral communicable diseases; R10.9 Unspecified abdominal pain; R06.02 Shortness of breath
CPT/HCPCS: 0241U; 36415; 71046; 74177; 80048; 84484; 85025; 92950; 93005; 94640; 96361; 96365; 96366; 96375; 96376; 99222; 99285; J1170; J2405; J2930; J3475; Q9967